=== PATIENT | male | born 1980 | race Caucasian/White ===

== ENCOUNTER 2018-02-04 21:28 | Emergency (ER) | payer SELFPAY ==
[~2018-02-04] VITALS: Ht 170.2 cm; Wt 93.0 kg
[2018-02-04] MEDS ORDERED: LIDOCAINE 1% PF 30 ML VIAL. ONE (21:54)
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
[2018-02-04] MEDS ORDERED: LIDOCAINE 1%/EPI 1:100,000 20 ML VIAL. INJ ONE (22:15)
[2018-02-04] MEDS ORDERED: DIPHTH,PERTUSS(ACELL),TET TOX 0.5 ML DISP.SYRIN. VAX IM ONE (22:15)
[2018-02-04] MEDS ORDERED: BACITRACIN TOPICAL OINT 14GM TUBE. TP ONE (23:55)
--- NOTE | 2018-02-05 00:03 | RAD ---
Right elbow x-rays 3 views. Right forearm AP lateral x-rays 2 views. Right hand x-rays 3 views. HISTORY: Laceration of the right arm, injury. Elbow findings: Soft tissue irregularity perhaps due to laceration posterior of the elbow. No radiopaque foreign body. No elevation of the fat pads to suggest a joint effusion. No fracture or dislocation. IMPRESSION: No acute osseous injury. Laceration posterior elbow. Forearm findings: No fracture or dislocation. Soft tissue laceration at the posterior elbow and a separate laceration at the dorsal forearm, the forearm laceration demonstrates indistinct densities which could represent tiny foreign bodies versus something on the bandage. No fracture or dislocation evident. There are tiny densities at the bandage posterior of the elbow laceration, not apparent on the dedicated elbow x-rays, is likely something on the bandage and not within the patient, follow-up x-rays without the bandages could confirm this. IMPRESSION: No acute osseous injury. Dorsal forearm laceration with punctate densities could represent small foreign bodies. Hand x-rays findings: No fracture or dislocation. No radiopaque foreign body. IMPRESSION: Negative right hand x-rays. Electronically signed by: Zane Chen MD (02/04/2018 11:59 PM) [id number]
[2018-02-05 01:50] VITALS: BP 115/60
== END 2018-02-05 02:19 | disposition home or self-care (01) ==
LOC: ER 21:28
DX: S51.811A Laceration without foreign body of right forearm, initial encounter (principal); S50.311A Abrasion of right elbow, initial encounter; F10.129 Alcohol abuse with intoxication, unspecified; Y90.9 Presence of alcohol in blood, level not specified; W22.8XXA Striking against or struck by other objects, initial encounter; Y93.89 Activity, other specified; Y92.89 Other specified places as the place of occurrence of the external cause; Y99.8 Other external cause status
CPT/HCPCS: 12002; 73080; 73090; 73130; 82962; 90471; 90715; 99285; J3490; 99284